=== PATIENT | female | born 1985 | race Two or more races ===

== ENCOUNTER 2017-02-19 23:45 | Observation (INO) | payer SELFPAY ==
--- NOTE | 2017-02-20 01:21 | OBPROG ---
OBG Progress Note Assessment/Plan: Assessment: fhr 15o accels noted no deceleration 07/22 accels speculum exam negative nitrazine ferning and pooling intercourse right before coming into the hospital states feeling menstrual like cramping routinely applejuice and water 500cc orally iv started to assist with hydration voiding without difficulty exam 1 cm outer closed inner os soft posterior no active bleeding noted with assessment consulted dr. antonio delacruz on poc fu with [facility] this week or early next week feeling positive movement Plan:hydration dischagre to home with instructions 02/20/17 01:17 Subjective: after intercourse I felt leaking of fluid and saw bleeding when wiping when i went to the bathroom. I have been cramping x 1 week. less than 5-6 per hour however regularly throughout the day. I drink a lot of water however I have not had much today - SVE Dilation (cm): 1 Effacement (%): 0 Station: -3 Current Contraction Pattern: Regular FHR (bpm): 150 Membranes: Intact ICD10 Worksheet Patient Problems: Problems Problem Status Onset ro rom and labor Acute
[2017-02-20] MEDS ORDERED: LR 1,000 ML IV SCH (01:30)
--- NOTE | 2017-02-20 01:44 | GHP ---
[f rep st] HISTORY AND PHYSICAL DATE OF ADMISSION: 02/19/2017 Patient is a 32-year-old, 3, para 2, at 27 and 1/7 weeks with an EDC of 05/21/2017, who comes in on 02/20/2017 with complaints of bleeding after intercourse, and leaking of fluid. Positive movement. Irregular contractions x1 week. Patient has been receiving routine care from [facility]. MEDICAL HISTORY: Patient has a history of anxiety. allergic rhinitis 2009 as well as H pylori infection on 08/15/2010. Patient has increased BMI. BMI is greater than 30 at 31.19. SURGICAL HISTORY: Breast augmentation. GYNECOLOGICAL HISTORY: No history of abnormal Paps. Last Pap smear was 2015, and that was within normal limits. FAMILY HISTORY: Benign. SOCIAL HISTORY: Patient denies being a smoker. No alcohol with the , and is engaged to partner. HISTORY: Patient's dates were confirmed with an early 1st trimester ultrasound. LABS: Patient is rubella immune. O positive. Other lab work through appears unavailable. PHYSICAL EXAMINATION: GENERAL: Patient is awake, alert, oriented x3. LUNGS: Clear bilaterally. ABDOMEN: Bowel sounds are positive in all 4 quadrants. EXTREMITIES: DTRs are 1+ bilaterally. No clonus. Homans' sign is negative bilaterally. Contractions appear with early assessment 10-15 minutes of being on the monitor , has irritability. With continued assessment, contractions appear to be irregular, occasionally 5 minutes apart. Patient states feeling cramping. Denies great pain with contractions. ALLERGIES: NKDA PREVIOUS HISTORY: Patient had 2 spontaneous vaginal deliveries. The first was in 05/2006, 40 weeks, 8-14 male, at [facility]. The second was in 01/2007 , 38 weeks, vaginal delivery, female with an epidural, protracted dilation at 9 cm. MEDICATIONS: PNV PLAN OF CARE: 1. Speculum exam. 2. Rule out rupture of membranes. Negative Nitrazine, negative ferning, negative pooling. 3. Exam: Patient was 1 cm on the outer os. Inner os was closed. Soft, posterior thick, and high. Because of sexual intercourse in the last 24 hours as well as small amount of bleeding, FFN was not completed. 4. Consulted with Dr. Elis Francis on plan of care. 5. IV fluids for hydration. PO fluids 6. Terbutaline 0.25mg sq x1 /[id number]/MODL MTDD
[2017-02-20] MEDS ORDERED: TERBUTALINE SULFATE 1 MG/ML VIAL SC ONE (01:51)
--- NOTE | 2017-02-20 03:50 | OBPROG ---
OBG Progress Note Assessment/Plan: Assessment: fhr 15o accels noted no deceleration 1010 accels speculum exam negative nitrazine ferning and pooling intercourse right before coming into the hospital resolved no longer feeling regular contractions 2l total fluid intake terbutaline x1 dose to assist with resolution of contractions voiding without difficulty exam 1 cm outer closed inner os soft posterior no active bleeding noted with assessment consulted dr. antonio delacruz on poc fu with [facility] this week or early next week feeling positive movement unable to do ffn, bleeding and recent intercourse Plan:discharge to home with instructions, note to work to assist with hydration and breaks, not to be off of work on friday, discussed fu in her clinic friday to work all weekend would patient to get clearance, discussed leaking, bleeding , pelvic rest, hydration, movement verbalized understanding 02/20/17 01:17 02/20/17 03:46 Subjective: I have only felt one contractions since the terbutaline Current Contraction Pattern: Irregular FHR (bpm): 155 FHR Pattern Variability: Moderate Membranes: Intact ICD10 Worksheet Patient Problems: Problems Problem Status Onset ro rom and labor Acute
== END 2017-02-20 03:18 | disposition home or self-care (01) ==
LOC: FLD 23:45
PROVIDERS: ADMIT Advanced Practice Midwife; ATTEND Obstetrics & Gynecology
DX: O47.02 False labor before 37 completed weeks of gestation, second trimester (principal); O99.342 Other mental disorders complicating pregnancy, second trimester; O26.892 Other specified pregnancy related conditions, second trimester; O99.89 Other specified diseases and conditions complicating pregnancy, childbirth and the puerperium; N93.0 Postcoital and contact bleeding; F41.9 Anxiety disorder, unspecified; Z3A.27 27 weeks gestation of pregnancy
CPT/HCPCS: G0378; J3105